=== PATIENT | female | born 1995 | race Two or more races ===

== ENCOUNTER 2016-11-18 16:31 | Emergency (ER) | payer OTHER ==
[~2016-11-18 16:31] MED LIST: BACTRIM DS TABL1 TA1 PO; BIRTH CONTROL PILL PO; IBUPROFEN PO; KEFLEX500 MG PO; PHENERGAN25 MG PO
[2016-11-18 17:06] LABS: URINE SOURCE CLEAN CATCH
[2016-11-18 17:14] LABS: URINE BILIRUBIN NEG (NEG); URINE BLOOD NEG (NEG); URINE GLUCOSE NORM (NORM); URINE KETONE NEG (NEG); URINE LEUKOCYTE ESTERASE NEG (NEG); URINE NITRATE NEG (NEG); URINE PROTEIN NEG (NEG); URINE SPECIFIC GRAVITY 1.015 (1.003-1.035); URINE UROBILINOGEN 4 MG/DL (NORM)
[2016-11-18 17:16] LABS: URINE APPEARANCE HAZY; URINE COLOR YELLOW
[2016-11-18 17:18] LABS: CULTURE INDICATED? NO
[2016-11-18 18:14] LABS: BASOPHIL# 0.1 X10e3 (0-0.3); BASOPHIL% 1.5 % (0-2.5); EOSINOPHIL# 0.1 X10e3 (0-0.7); EOSINOPHIL% 1.5 % (0.0-7.0); HEMATOCRIT 42.9 % (35.0-45.0); HEMOGLOBIN 14.1 gm/dL (12.0-16.0); LYMPHOCYTE# 2.8 X10e3 (1.0-3.5); LYMPHOCYTE% 32.1 % (17.0-45.0); MEAN CELL VOLUME 87.4 FL (83-96); MEAN CORPUSCULAR HEMOGLOBIN 28.7 PG (28-34); MEAN CORPUSCULAR HGB CONC 32.9 g/dL (30-36); MEAN PLATELET VOLUME 7.9 FL (6.5-11.5); MONOCYTE# 0.6 X10e3 (0-1.0); MONOCYTE% 6.8 % (3.0-12.0); NEUTROPHIL% 58.1 % (40-75); PLATELET COUNT 271 X10e3 (140-420); RED CELL DISTRIBUTION WIDTH 13.9 % (11.0-15.5); WHITE BLOOD COUNT 8.7 X10e3 (4.0-10.5)
[2016-11-18 18:15] LABS: DIFF IND NO
[2016-11-18 18:41] LABS: ALBUMIN SERUM 4.4 g/dL (3.5-5.0); BILIRUBIN, DIRECT 0.1 mg/dL (0.0-0.2); BILIRUBIN,INDIRECT 0.6 mg/dL (0.0-0.9); BILIRUBIN,TOTAL 0.7 mg/dL (0.2-2.0); CALCIUM SERUM 8.9 mg/dL (8.4-10.2); CREATININE SERUM 0.5 mg/dL (0.6-1.4); GLOM FILT RATE Estimated 138.4 mL/min (>60); POTASSIUM 3.9 mmol/L (3.5-5.1); PROTEIN TOTAL SERUM 7.1 g/dL (6.0-8.3)
== END 2016-11-18 20:48 | disposition home or self-care (01) ==
LOC: CED 16:31
DX: O99.89 Other specified diseases and conditions complicating pregnancy, childbirth and the puerperium (principal); H20.9 Unspecified iridocyclitis; O99.331 Smoking (tobacco) complicating pregnancy, first trimester; F17.200 Nicotine dependence, unspecified, uncomplicated; O16.1 Unspecified maternal hypertension, first trimester
CPT/HCPCS: 36415; 80048; 80076; 81003; 83690; 84703; 85025; 99284

== ENCOUNTER 2016-11-21 16:30 | Emergency (ER) | payer OTHER | END 2016-11-21 17:45 | disposition home or self-care (01) | LOC: CED 16:30 → CFTX 16:30 | DX: H10.33 Unspecified acute conjunctivitis, bilateral (principal); I10 Essential (primary) hypertension; R20.0 Anesthesia of skin | CPT/HCPCS: 99282; 99283 ==